=== PATIENT | female | born 1970 | race Caucasian/White ===

== ENCOUNTER 2020-10-18 17:31 | Emergency (ER) | payer OTHER ==
[~2020-10-18] VITALS: Ht 152.4 cm; Wt 64.4 kg
[~2020-10-18 17:31] MED LIST: KEFLEX500 MG PO; NOHOMEMEDICATIONS
[2020-10-18] MEDS ORDERED: NAPROXEN375 MG PO (19:32)
[2020-10-18] MEDS ORDERED: NORFLEX100 MG PO (19:32)
[2020-10-18 19:57] VITALS: BP 122/50
== END 2020-10-18 20:00 | disposition home or self-care (01) ==
LOC: ER 17:31
DX: S16.1XXA Strain of muscle, fascia and tendon at neck level, initial encounter (principal); S29.012A Strain of muscle and tendon of back wall of thorax, initial encounter; M25.512 Pain in left shoulder; V89.2XXA Person injured in unspecified motor-vehicle accident, traffic, initial encounter; Y93.89 Activity, other specified; Y92.488 Other paved roadways as the place of occurrence of the external cause; Y99.8 Other external cause status